=== PATIENT | female | born 1975 | race Hispanic/Latino ===

== ENCOUNTER 2018-04-10 14:48 | Emergency (ER) | payer OTHER ==
[2018-04-10] MEDS ORDERED: DEXAMETHASONE SOD PHOSPHATE 10MG/ML 1ML VIAL ONE (16:14)
[2018-04-10] MEDS ORDERED: KETOROLAC TROMETHAMINE 30MG/ML ONE (16:14)
[2018-04-10] MEDS ORDERED: ORPHENADRINE CITRATE 30 MG/ML ML ONE (16:14)
== END 2018-04-10 16:53 | disposition home or self-care (01) ==
LOC: EDH 14:48
DX: M54.12 Radiculopathy, cervical region (principal); M79.602 Pain in left arm
CPT/HCPCS: 72040; 73030; 96374; 96375; 99283; J1100; J1885; J2360

== ENCOUNTER 2021-06-17 00:05 | Emergency (ER) | payer OTHER ==
[~2021-06-17] VITALS: Ht 152.4 cm; Wt 98.4 kg
[2021-06-17 00:25] VITALS: BP 163/88
[2021-06-17] MEDS ORDERED: ORPHENADRINE CITRATE 30 MG/ML ML IVP ONE (01:00)
[2021-06-17] MEDS ORDERED: KETOROLAC 30MG VIAL (30MG/ML) IVP ONE (01:00)
[2021-06-17] MEDS ORDERED: HYDROCODONE/ACETAMINOPHEN 10/325 MG TAB PO ONE (01:00)
[2021-06-17 01:03] LABS: BASOPHILS % (AUTO) 0.7 % (0.0-5.0); EOSINOPHILS % (AUTO) 3.1 % (0.0-8.0); HEMATOCRIT 38.7 % (36-48); LYMPHOCYTES % (AUTO) 20.2 % (21.0-51.0); MEAN CORPUSCULAR HEMOGLOBIN 25.4 pg (27.0-33.0); MEAN CORPUSCULAR HGB CONC 31.3 g/dL (32.0-36.0); MEAN CORPUSCULAR VOLUME 81.3 fL (79-99); MONOCYTES % (AUTO) 6.9 % (3.0-13.0); NEUTROPHILS % (AUTO) 68.7 % (40.0-77.0); PLATELET COUNT (AUTO) 275 K/uL (130-400); RED BLOOD CELL COUNT(AUTO) 4.76 MIL/uL (4.00-5.50); RED CELL DISTRIBUTION WIDTH 13.1 % (11.0-15.5); WHITE BLOOD COUNT (AUTO) 10.5 K/uL (4.8-10.8)
[2021-06-17 01:16] LABS: CREATININE 0.7 mg/dL (0.5-1.5); CRP QUANTITATIVE 39.5 mg/L (0.00-9.0); POTASSIUM 3.7 mmol/L (3.5-5.1)
[2021-06-17] MEDS ORDERED: ACET-2079 PO (03:02)
== END 2021-06-17 03:08 | disposition home or self-care (01) ==
LOC: EDH 00:05
DX: M75.91 Shoulder lesion, unspecified, right shoulder (principal); M25.511 Pain in right shoulder
CPT/HCPCS: 36415; 72040; 73030; 80048; 84703; 85025; 86140; 96374; 96375; 99284; J1885; J2360

== ENCOUNTER 2023-06-06 23:19 | Emergency (ER) | payer BC, OTHER ==
[~2023-06-06] VITALS: Ht 154.9 cm; Wt 99.8 kg
[~2023-06-06 23:19] MED LIST: ACET-2079 PO
[2023-06-07 00:28] LABS: CREATININE 0.7 mg/dL (0.5-1.0); POTASSIUM 3.8 mmol/L (3.5-5.1)
[2023-06-07 00:33] LABS: ALBUMIN 2.9 g/dL (3.5-5.0); BILIRUBIN,TOTAL 0.5 mg/dL (0.2-1.0); TOTAL PROTEIN, SERUM 7.9 g/dL (6.0-8.3)
[2023-06-07 00:46] LABS: BASOPHILS # (AUTO) 0.09 K/uL (0.00-0.20); BASOPHILS % (AUTO) 0.6 % (0.0-5.0); EOSINOPHILS # (AUTO) 0.25 K/uL (0.00-0.70); EOSINOPHILS % (AUTO) 1.8 % (0.0-8.0); HEMATOCRIT 36.6 % (36-48); IMMATURE GRANULOCYTE ABSOLUTE 0.06 K/uL (0-1); LYMPHOCYTES # (AUTO) 2.1 K/uL (1.0-4.8); LYMPHOCYTES % (AUTO) 14.7 % (21.0-51.0); MEAN CORPUSCULAR HEMOGLOBIN 26.8 pg (27.0-33.0); MEAN CORPUSCULAR HGB CONC 32.5 g/dL (32.0-36.0); MEAN CORPUSCULAR VOLUME 82.4 fL (79-99); MONOCYTES % (AUTO) 6.9 % (3.0-13.0); NEUTROPHILS # (AUTO) 10.7 K/uL (1.8-7.7); NEUTROPHILS % (AUTO) 75.6 % (40.0-77.0); PLATELET COUNT (AUTO) 296 K/uL (130-400); RED BLOOD CELL COUNT(AUTO) 4.44 MIL/uL (4.00-5.50); RED CELL DISTRIBUTION WIDTH 13.6 % (11.0-15.5); WHITE BLOOD COUNT (AUTO) 14.1 K/uL (4.8-10.8)
[2023-06-07] MEDS: DIAZEPAM 5 MG/ML 2 ML SYG IVP ONE (01:21)
[2023-06-07] MEDS: 0.9%NACL 1000ML 1,000 ML IV ONE (01:21)
[2023-06-07] MEDS: KETOROLAC 30MG VIAL (30MG/ML) IVP ONE (01:22)
[2023-06-07 03:25] VITALS: BP 129/68; PULSE 76; RESP 18; O2SAT 98
[2023-06-07] MEDS ORDERED: IBUP-2070 PO (03:55)
[2023-06-07] MEDS ORDERED: CYCL-309 PO (03:55)
[2023-06-07] MEDS ORDERED: KCL 20 MEQ ERTAB PO PRN (04:30)
[2023-06-07] MEDS ORDERED: POTASSIUM CHLORIDE 10% ELIXIR 20 MEQ/15 ML UDCUP PO PRN (04:30)
[2023-06-07] MEDS ORDERED: POTASSIUM CHLORIDE 10MEQ/100ML 100 ML IV PRN (04:30)
[2023-06-07] MEDS ORDERED: MAGNESIUM 2GM PREMIX 50ML 50 ML IV PRN (04:30)
[2023-06-07] MEDS ORDERED: INSULIN HUMULIN R 100 UNIT/ML 3ML SQ SCH (07:30)
== END 2023-06-07 04:09 | disposition home or self-care (01) ==
LOC: EDH 23:19
DX: S86.111A Strain of other muscle(s) and tendon(s) of posterior muscle group at lower leg level, right leg, initial encounter (principal); S20.212A Contusion of left front wall of thorax, initial encounter; R73.9 Hyperglycemia, unspecified; W01.0XXA Fall on same level from slipping, tripping and stumbling without subsequent striking against object, initial encounter; Y93.89 Activity, other specified; Y92.89 Other specified places as the place of occurrence of the external cause; Y99.8 Other external cause status
CPT/HCPCS: 99284; 80053; 85025; 36415; 96374; 96361; 96375; 73610; 73562; 73590; 71101; J7030; J3360; J1885